=== PATIENT | female | born 1965 | race Caucasian/White ===

== ENCOUNTER 2022-07-27 17:00 | Emergency (ER) | payer OTHER, SELFPAY ==
[2022-07-27 17:07] VITALS: BP 143/69; PULSE 83; RESP 16; TEMP 36.6; O2SAT 96
--- NOTE | 2022-07-27 17:12 | XRR_ITS ---
PROCEDURE INFORMATION: Exam: XR Right Ankle Exam date and time: 07/27/2022 6:51 PM Age: 56 years old Clinical indication: Pain; Ankle and foot; Right; Additional info: Heavy object fell on ankle TECHNIQUE: Imaging protocol: Radiologic exam of the Right ankle. Views: 3 or more views. COMPARISON: CR (LOW EXM, ) 07/27/2022 6:18 PM FINDINGS: Bones/joints: Lateral malleolar soft tissue swelling. Punctate calcification at the tip of the fibula may reflect a small avulsion fracture. Os trigonum, normal variant. Small calcified heel spur. Fifth metatarsal base fracture incompletely visualized, please refer to same-day foot radiograph for further discussion. Soft tissues: See Bones/joints finding. XR/XR ankle RT min 3V* [id number] IMPRESSION: 1. Lateral malleolar soft tissue swelling. 2. Punctate calcification at the tip of the fibula may reflect a small avulsion fracture. 3. Os trigonum, normal variant. 4. Small calcified heel spur. 5. Fifth metatarsal base fracture incompletely visualized, please refer to same-day foot radiograph for further discussion.
--- NOTE | 2022-07-27 17:19 | W.ED.EXTPRO ---
HPI - Extremity Problem General: Chief complaint: Extremity Injury, Lower Stated complaint: Right leg injury Time Seen by Provider: 07/27/22 17:14 History of Present Illness: Patient is a 56-year-old female comes to the ED with right ankle injury. Patient says she was trying to get up bug zapper down and tractor seat fell onto her right ankle and foot She has 8 out of 10 pain in her right ankle with a lot of swelling. She was unable to weight-bear after injury. Associated symptoms: Deny chest pain, fever(s) or rash Review of Systems Const: Denies: fever(s), chills or fatigue Eyes: Denies: change in vision or eye discomfort ENMT: Denies: throat pain, odynophagia, nasal discharge or nasal congestion Card: Denies: chest pain, palpitations, edema, swelling of feet/ankles, dyspnea on exertion or orthopnea Resp: Denies: dyspnea, productive cough or non-productive cough GI: Denies: abdominal pain, nausea, vomiting, diarrhea, constipation or hematochezia : Denies: flank pain, dysuria or hematuria Musc: Reports: extremity pain (Right ankle) and extremity swelling (Right ankle); Denies: neck pain or back pain Skin/Breast: Denies: rash or new lesions Neuro: Denies: headache(s), numbness in extremities or weakness in extremities PFS ED PFSH: Medical History No pertinent family history Surgical History No pertinent past surgical history Physical Exam Const: COMMON NORMALS: patient oriented x3 and alert GENERAL APPEARANCE: cooperative HENMT: COMMON NORMALS: normocephalic HEAD & SCALP: normocephalic MOUTH: Normal oral and palatal mucosa present THROAT: posterior oropharynx normal and uvula midline Neck/C-Spine: COMMON NORMALS: supple GENERAL: Yes normal visual inspection Resp: COMMON NORMALS: normal respiratory effort, No retractions, No use of accessory muscles and clear to auscultation bilaterally AUSCULTATION: clear to auscultation bilaterally Cardio: COMMON NORMALS: regular rate, regular rhythm, S1 normal heart sound present, S2 normal heart sound present, No gallops present (Cardio), No clicks present (Cardio), No murmurs present (Cardio) and Peripheral pulses 2+ throughout RATE: regular rate RHYTHM: regular rhythm HEART SOUNDS: S1 normal heart sound present and S2 normal heart sound present PERIPHERAL PULSES: Peripheral pulses 2+ throughout GI: COMMON NORMALS: Normal to inspection, nondistended, normoactive bowel sounds present, Soft to palpation, non-tender and no masses PALPATION: Yes Soft to palpation : COMMON NORMALS: Yes no CVA tenderness BLADDER/KIDNEY EXAM: Yes no CVA tenderness Back/Pelvis: COMMON NORMALS: no CVA tenderness Extremity: COMMON NORMALS: normal to inspection NARRATIVE EXTREMITY EXAM: Right foot?ecchymosis and swelling around lateral midfoot region. Tenderness to palpation. Neurovascular intact RIGHT LOWER EXTREMITY: Yes foot & digits Right ankle: Yes inspection (Ecchymosis and swelling over lateral malleolus), Yes palpation (Tenderness over lateral malleolus), Yes ROM (Limited due to pain) and Yes neurovascular exam (Intact) Neuro: COMMON NORMALS: patient oriented x3 SENSORIUM/ORIENTATION: Yes alert GAIT: Yes Normal gait present Skin: GENERAL SKIN EXAM: dry skin Course Vital Signs: Vital signs: Vital Signs Temperature 97.8 F 07/27/22 17:07 Pulse Rate 83 07/27/22 17:07 Respiratory Rate 17 07/27/22 17:20 Blood Pressure 143/69 07/27/22 17:07 Pulse Oximetry 95 07/27/22 17:20 Oxygen Delivery Me thod 07/27/22 17:07 MDM - Extremity (Nontraumatic) Medical Decision Making Patient is a 56-year-old female comes to the ED with right ankle injury. Patient says she was trying to get up bug zapper down and tractor seat fell onto her right ankle and foot She has 8 out of 10 pain in her right ankle with a lot of swelling. She was unable to weight-bear after injury. Vitals are stable. Exam of patient shows significant ecchymosis and swelling over lateral malleolus. She has tenderness over lateral malleolus and lateral aspect midfoot. Neurovascular intact. Ankle x-ray shows avulsion fracture of distal fibula along with fifth metatarsal comminuted fracture involving the proximal base. Patient diagnosed with metatarsal fracture and avulsion fracture of distal fibula. I placed an order with case management for patient referred to podiatry/Ortho for follow-up and further management of foot and ankle fracture. Patient was put in a posterior leg with stirrup splint and she has crutches at home she will use for ambulation. She was discharged home with a prescription for hydrocodone for pain. Return to ED precautions given. Patient understood and agreed with plan. Lab Data Radiology Impressions Ankle X-Ray 07/27/22 17:12 IMPRESSION: 1. Lateral malleolar soft tissue swelling. 2. Punctate calcification at the tip of the fibula may reflect a small avulsion fracture. 3. Os trigonum, normal variant. 4. Small calcified heel spur. 5. Fifth metatarsal base fracture incompletely visualized, please refer to same-day foot radiograph for further discussion. Foot X-Ray 07/27/22 18:05 IMPRESSION: Fifth metatarsal comminuted fracture involving the proximal base extending to the mid diaphysis with mild displacement, with suggestion of some healing callus formation suggesting this may be subacute depending on the clinical scenario. Discharge Plan Discharge Patient Disposition: Home Clinical Impression: Avulsion fracture of distal end of fibula Metatarsal fracture Qualifiers: Encounter type: initial encounter Metatarsal bone: fifth Fracture type: closed Fracture alignment: nondisplaced Laterality: right Qualified Code(s): S92.354A - Nondisplaced fracture of fifth metatarsal bone, right foot, initial encounter for closed fracture Condition: Stable Prescriptions: New ibuprofen 800 mg tablet 800 mg PO Q8H PRN (Reason: pain) Qty: 30 0RF Discharge Orders: Discharge ED (Routine); Ordered 07/27/22 Ordered By: Temo Cooney Discharge Diet: Regular Discharge Activity: Limit activity as instructed and Use walker/crutches as instructed Patient Instructions: Fractures - Metatarsal, Opioid Safety Activity Restrictions/Additional Instructions: Follow-up with medical provider as directed. Case management should be contacting you in the next several days set up an appointment with Ortho/podiatry for follow-up and further management of metatarsal fracture and distal fibula avulsion fracture. Keep splint on and dry and limit weightbearing and use crutches to help with ambulation. Take medications as prescribed. Return to the ER or your medical provider if condition worsens. Please read and understand discharge instructions. Thank you for choosing [facility] for your healthcare needs today. Please realize this is an emergency room and that we are providing you with a medical screening exam and this may not be complete and all inclusive of all the testing and or work up that you may need to determine your ailment or severity of your illness. It is very important that you follow up as instructed or that you return to the Emergency Department should you have concerns or if your condition changes or worsens in any way. Coding Level of Care Code ED Certified Maintenance [employer]der for [employer] Exam Comprehensive
[2022-07-27 17:20] VITALS: RESP 17; O2SAT 95
[2022-07-27] MEDS: morphine 4 mg/mL SDV 1 mL IM (17:20)
--- NOTE | 2022-07-27 18:05 | XRR_ITS ---
PROCEDURE INFORMATION: Exam: XR Right Foot Exam date and time: 07/27/2022 6:18 PM Age: 56 years old Clinical indication: Injury or trauma; Other: Heavy object fell on foot; Blunt trauma; Right; Additional info: Heavy object fell on right foot TECHNIQUE: Imaging protocol: Radiologic exam of the Right foot. Views: 3 or more views. COMPARISON: No relevant prior studies available. FINDINGS: Bones/joints: Fifth metatarsal comminuted fracture involving the proximal base extending to the mid diaphysis with mild displacement, with suggestion of some healing callus formation suggesting this may be subacute depending on the clinical scenario. Soft tissues: Normal. XR/XR foot RT min 3V* [id number] IMPRESSION: Fifth metatarsal comminuted fracture involving the proximal base extending to the mid diaphysis with mild displacement, with suggestion of some healing callus formation suggesting this may be subacute depending on the clinical scenario.
[2022-07-27] MEDS: HYDROcodone-acetaminophen 7.5-325 mg Tablet 1 TAB PO (19:17)
--- NOTE | 2022-07-30 10:53 | DCPLANNER ---
Addendum entered by Cristal King 07/31/22 07:42: sales analytics manager received the following message from ortho regarding follow up appointment: called patient to schedule appointment, she informed me we do not take her insurance so she was going to her primary care in [place] and told me to disregard this! Original Note: sales analytics manager had message to schedule a follow up appointment for patient with ortho. sales analytics manager sent patients information to the front office staff at ortho. Patients information will be printed and reviewed. Clinic will call patient with appointment information.
== END 2022-07-27 20:24 | disposition home or self-care (01) ==
PROVIDERS: Emergency Provider Physician Assistant; PCP Family Medicine
DX: S82.831A Other fracture of upper and lower end of right fibula, initial encounter for closed fracture (principal); S92.351A Displaced fracture of fifth metatarsal bone, right foot, initial encounter for closed fracture; W20.8XXA Other cause of strike by thrown, projected or falling object, initial encounter
CPT/HCPCS: 29515; 73610; 73630; 96372; 99284; J2270

== ENCOUNTER 2023-01-11 07:27 | Emergency (ER) | payer OTHER, SELFPAY ==
[2023-01-11 07:39] VITALS: BP 155/80; PULSE 74; RESP 25; TEMP 36.8; O2SAT 100
[2023-01-11 07:49] VITALS: O2SAT 98
--- NOTE | 2023-01-11 07:53 | CT_ITS ---
WS: [id number] CT ABDOMEN AND PELVIS NONCONTRAST HISTORY: Right flank pain TECHNIQUE: Imaging performed through the abdomen and pelvis. Coronal and sagittal reformats are submi tted. All CT scans at [facility] use at least one of these dose optimization techniques: auto mated exposure control; mA and/or kV adjustment per patient size (includes targeted exams where dose is matched to clinical indication); or iterative reconstruction. DLP: 396.44 mGy.cm COMPARISON: None available. Lower thorax: Lung bases are clear. Visualized heart is normal. No hiatal hernia. Liver: Normal size liver. No mass or bile duct dilatation. Gallbladder: Normal gallbladder. Pancreas: Normal size and attenuation. Normal pancreatic duct. No pancreatitis or mass. Spleen: Normal. Adrenal glands: Normal. No mass. Right kidney: Mildly enlarged and edematous RIGHT kidney. Mild RIGHT hydroureteronephrosis. 2 mm calc ification in the distal RIGHT ureter. There is an additional 4 mm calcification which is probably in the urinary bladder. Left kidney: Normal size kidney with no mass or hydronephrosis. Aorta: Mild atherosclerosis abdominal aorta with no aneurysm. No free fluid, intraperitoneal air or significant lymphadenopathy. GI tract: Normal noncontrast imaging of the stomach, small bowel and colon. No obstruction or wall th ickening. Normal appendix. Abdominal wall: Negative. No hernia. Pelvis: Normal. Osseous structures: Unremarkable. CT/CT kidney stone [id number] IMPRESSION: 1. Mild RIGHT hydroureteronephrosis. 2 mm calcification in the distal RIGHT ur eter. Additional 4 mm calcification either at the UV junction or within the uri nary bladder. 2. Normal appendix.
--- NOTE | 2023-01-11 07:53 | ED_ITS ---
Documented by User: NANCY Quiroga 01/11/23 10:44 HPI - Abdominal Pain General: Chief Complaint: Abdominal Pain Stated Complaint: back pain/urinary pain Time Seen by Provider: 01/11/23 07:30 History of Present Illness: Patient is a 57-year-old female comes to the ED with abdominal pain. Symptoms started around 3:00 this morning. Patient says pain woke her up and it was located in the right lower side of abdomen. Pain then radiates around her right side and into her right lower back. She rates the pain a 10 out of 10. She was nauseous and had an episode of emesis earlier this morning. She took 2 Tylenol 500 mg tablets and that did not help with pain. She states she has been moving around a bunch and cannot get comfortable. Denies any history of kidney stones. Denies any fevers, dysuria, hematuria, constipation or diarrhea. Past surgical history of 2 C-sections and hysterectomy. Associated Symptoms: Denies chills, constipation, diarrhea, dysuria, fever(s), hematochezia, hematuria, nausea and vomiting Review of Systems Const: Denies: fever(s), chills or fatigue Eyes: Denies: change in vision or eye discomfort ENMT: Denies: throat pain, odynophagia, nasal discharge or nasal congestion Card: Denies: chest pain, palpitations, edema, swelling of feet/ankles, dyspnea on exertion or orthopnea Resp: Denies: dyspnea, productive cough or non-productive cough GI: Denies: abdominal pain, nausea, vomiting, diarrhea, constipation or hematochezia : Reports: flank pain (Right flank); Denies: dysuria or hematuria Musc: Denies: neck pain, back pain or extremity swelling Skin/Breast: Denies: rash or new lesions Neuro: Denies: headache(s), numbness in extremities or weakness in extremities PFS ED PFSH: Medical History No pertinent family history Surgical History No pertinent past surgical history Physical Exam Const: COMMON NORMALS: patient oriented x3 HENMT: COMMON NORMALS: normocephalic HEAD & SCALP: normocephalic MOUTH: Normal oral and palatal mucosa present THROAT: posterior oropharynx normal and uvula midline Neck/C-Spine: COMMON NORMALS: supple GENERAL: Yes normal visual inspection Resp: COMMON NORMALS: normal respiratory effort, No retractions, No use of accessory muscles and clear to auscultation bilaterally AUSCULTATION: clear to auscultation bilaterally Cardio: COMMON NORMALS: regular rate, regular rhythm, S1 normal heart sound present, S2 normal heart sound present, No gallops present (Cardio), No clicks present (Cardio), No murmurs present (Cardio) and Peripheral pulses 2+ throughout RATE: regular rate RHYTHM: regular rhythm HEART SOUNDS: S1 normal heart sound present and S2 normal heart sound present PERIPHERAL PULSES: Peripheral pulses 2+ throughout GI: COMMON NORMALS: Normal to inspection, nondistended, normoactive bowel sounds present, Soft to palpation, non-tender and no masses PALPATION: Yes Soft to palpation and Yes Tenderness to palpation present (GI) Details: RLQ : BLADDER/KIDNEY EXAM: Yes CVA tenderness on the right Back/Pelvis: GENERAL BACK: Yes CVA tenderness Extremity: COMMON NORMALS: normal to inspection Neuro: COMMON NORMALS: patient oriented x3 GAIT: Yes Normal gait present Skin: GENERAL SKIN EXAM: dry skin Course Vital Signs: Vital signs: Vital Signs Temperature 98.3 F 01/11/23 07:39 Pulse Rate 62 01/11/23 10:44 Respiratory Rate 25 H 01/11/23 07:39 Blood Pressure 138/58 01/11/23 10:44 Pulse Oximetry 97 01/11/23 10:44 Oxygen Delivery Me thod 01/11/23 07:49 MDM - Abdominal Pain Medical Decision Making Patient is a 57-year-old female comes in the ED with right flank pain. Vitals are stable. Patient has right CVA tenderness. Rest of exam is benign white blood cell count of 13.9 the rest of CBC and CMP are unremarkable. UA shows RBCs but no signs of UTI. CT abdomen pelvis shows right 2 mm kidney stone and distal right ureter and a 4 mm stone at the UV junction or in bladder. Patient's symptoms were well controlled with IV pain meds and nausea meds. She was stable for discharge home. I placed order with case management for patient be referred to urologist for follow-up. She was sent home with a prescription for tamsulosin, naproxen, Zofran and [place] for acute pain. Return to ED precautions given. Patient is to improve with plan. Lab Data I reviewed the patient's lab results. 01/11/23 07:51 01/11/23 07:51 Labs/Radiology: Radiology Impressions Abdomen/Pelvis CT 01/11/23 07:53 IMPRESSION: 1. Mild RIGHT hydroureteronephrosis. 2 mm calcification in the distal RIGHT ureter. Additional 4 mm calcification either at the UV junction or within the urinary bladder. 2. Normal appendix. Laboratory Results WBC 13.9 10^3/uL (4.0-10.0) H 01/11/23 07:51 RBC 4.76 10^6/uL (4.1-5.3) 01/11/23 07:51 Hgb 14.5 g/dL (11.5-15.3) 01/11/23 07:51 Hct 44.9 % (37.0-47.0) 01/11/23 07:51 MCV 94.3 fl (81-99) 01/11/23 07:51 MCH 30.5 pg (28.0-34.0) 01/11/23 07:51 MCHC 32.3 g/dL (30.0-36.0) 01/11/23 07:51 RDW 12.5 % (12.1-15.1) 01/11/23 07:51 Plt Count 350 10^3/cmm (130-400) 01/11/23 07:51 MPV 10.4 fL (7.4-10.4) 01/11/23 07:51 Neut % (Auto) 78.1 % 01/11/23 07:51 Lymph % (Auto) 15.8 % 01/11/23 07:51 [place] % (Auto) 4.0 % 01/11/23 07:51 Eos % (Auto) 1.1 % 01/11/23 07:51 Baso % (Auto) 0.6 % 01/11/23 07:51 Neut # (Auto) 10.86 10^3/uL (1.8-7.7) H 01/11/23 07:51 Lymph # (Auto) 2.2 10^3/uL (0.8-4.8) 01/11/23 07:51 Forrest # (Auto) 0.6 10^3/uL (0.2-0.9) 01/11/23 07:51 Eos # (Auto) 0.2 10^3/uL (0.0-0.8) 01/11/23 07:51 Baso # (Auto) 0.1 10^3/uL (0.0-0.1) 01/11/23 07:51 Nucleated RBC % (auto) 0 % 01/11/23 07:51 Nucleated RBCs # 0.0 /100WBC 01/11/23 07:51 Sodium 137 mmol/L (136-145) 01/11/23 07:51 Potassium 4.3 mmol/L (3.5-5.1) 01/11/23 07:51 Chloride 99 mmol/L (98-107) 01/11/23 07:51 Carbon Dioxide 20 mmol/L (22-29) L 01/11/23 07:51 Anion Gap 22.3 (5-19) H 01/11/23 07:51 BUN 20 mg/dL (6-20) 01/11/23 07:51 Creatinine 0.7 mg/dL (0.5-0.9) 01/11/23 07:51 GFR Calculation 85.9 mL/min (90-130) L 01/11/23 07:51 Glucose 167 mg/dL (65-115) H 01/11/23 07:51 Calculated Osmolality 290 mOsm/kg (285-295) 01/11/23 07:51 Calcium 9.5 mg/dL (8.5-10.5) 01/11/23 07:51 Total Bilirubin 0.3 mg/dL (0.15-1.2) 01/11/23 07:51 AST 16 U/L (0-32) 01/11/23 07:51 ALT 17 U/L (0-33) 01/11/23 07:51 Alkaline Phosphatase 87 U/L (35-105) 01/11/23 07:51 Total Protein 7.6 g/dL (6.6-8.7) 01/11/23 07:51 Albumin 4.8 g/dL (3.5-5.2) 01/11/23 07:51 Globulin 2.8 g/dL (1.3-4.6) 01/11/23 07:51 Lipase 26 U/L (13-60) 01/11/23 07:51 Urine Color [place] (Yellow) 01/11/23 10:09 Urine Appearance Clear (CLEAR) 01/11/23 10:09 Urine pH 6 (5-7) 01/11/23 10:09 Ur Specific [place] 1.015 (1.005-1.030) 01/11/23 10:09 Urine Protein 1+ (Negative) H 01/11/23 10:09 Urine Glucose (UA) Norm (Normal) 01/11/23 10:09 Urine Ketones 1+ (Negative) H 01/11/23 10:09 Urine Blood 3+ (Negative) H 01/11/23 10:09 Urine Nitrate TNP 01/11/23 10:09 Urine Bilirubin 1+ (Negative) H 01/11/23 10:09 Urine Urobilinogen 1 mg/dL (Negative) H 01/11/23 10:09 Ur Leukocyte Esterase Negative (Negative) 01/11/23 10:09 Urine RBC 10-15 /hpf (0-2) H 01/11/23 10:09 Urine WBC 0-4 /hpf (0-5) H 01/11/23 10:09 Ur Squamous Epith Cells 0-4 /hpf (0-5) H 01/11/23 10:09 Amorphous Sediment Not Reportable 01/11/23 10:09 Urine Bacteria Trace /hpf (NONE) 01/11/23 10:09 Urine Mucus Trace /hpf 01/11/23 10:09 Discharge Plan Discharge Patient Disposition: Home Clinical Impression: Kidney stone on right side Condition: Stable Prescriptions: New Naprosyn 500 mg tablet 500 mg PO BID PRN (Reason: pain) Qty: 20 0RF ondansetron 4 mg tablet,disintegrating 4 mg PO Q8H PRN (Reason: nausea and vomiting) Qty: 15 0RF tamsulosin 0.4 mg capsule 0.4 mg PO DAILY Qty: 10 0RF No Action ibuprofen 800 mg tablet 800 mg PO Q8H PRN (Reason: pain) Qty: 30 0RF Discharge Orders: Discharge ED (Routine); Ordered 01/11/23 Ordered By: Temo Cooney Referrals: Dereck Farrell [Primary Care Provider] - Discharge Diet: Regular Discharge Activity: Increase activity as tolerated Patient Instructions: Kidney Stones (ED), Opioid Safety Activity Restrictions/Additional Instructions: Follow-up with medical provider as directed. Case management should be contacting you in the next several days to set up an appointment with urologist. Strain urine to catch stone and drink lots of fluid to stay hydrated and help pass stone. Take medications as prescribed. You can take ibuprofen or Aleve for any pain or fevers. Return to the ER or your medical provider if condition worsens. Please read and understand discharge instructions. If any questions, please ask. Coding Level of Care Code ED Stock Transfer Clerk for Chg Fwd Documented by User: Ezekiel Harrison DO 01/11/23 11:38 HPI - Abdominal Pain General: Chief Complaint: Abdominal Pain Stated Complaint: back pain/urinary pain Time Seen by Provider: 01/11/23 07:30 PFSH ED PFSH: Medical History No pertinent family history Surgical History No pertinent past surgical history Course Vital Signs: Vital signs: Vital Signs Temperature 98.3 F 01/11/23 07:39 Pulse Rate 62 01/11/23 10:44 Respiratory Rate 25 H 01/11/23 07:39 Blood Pressure 138/58 01/11/23 10:44 Pulse Oximetry 97 01/11/23 10:44 Oxygen Delivery Me thod 01/11/23 07:49 MDM - Abdominal Pain Medical Decision Making Patient is a 57-year-old female comes in the ED with right flank pain. Vitals are stable. Patient has right CVA tenderness. Rest of exam is benign white blood cell count of 13.9 the rest of CBC and CMP are unremarkable. UA shows RBCs but no signs of UTI. CT abdomen pelvis shows right 2 mm kidney stone and distal right ureter and a 4 mm stone at the UV junction or in bladder. Patient's symptoms were well controlled with IV pain meds and nausea meds. She was stable for discharge home. I placed order with case management for patient be referred to urologist for follow-up. She was sent home with a prescription for tamsulosin, naproxen, Zofran and [place] for acute pain. Return to ED precautions given. Patient is to improve with plan. Chart reviewed and patient discussed with midlevel. Agree with assessment and plan. Medical Records I reviewed the patient's medical records. Lab Data 01/11/23 07:51 01/11/23 07:51 Labs/Radiology: Radiology Impressions Abdomen/Pelvis CT 01/11/23 07:53 IMPRESSION: 1. Mild RIGHT hydroureteronephrosis. 2 mm calcification in the distal RIGHT ureter. Additional 4 mm calcification either at the UV junction or within the urinary bladder. 2. Normal appendix. Laboratory Results WBC 13.9 10^3/uL (4.0-10.0) H 01/11/23 07:51 RBC 4.76 10^6/uL (4.1-5.3) 01/11/23 07:51 Hgb 14.5 g/dL (11.5-15.3) 01/11/23 07:51 Hct 44.9 % (37.0-47.0) 01/11/23 07:51 MCV 94.3 fl (81-99) 01/11/23 07:51 MCH 30.5 pg (28.0-34.0) 01/11/23 07:51 MCHC 32.3 g/dL (30.0-36.0) 01/11/23 07:51 RDW 12.5 % (12.1-15.1) 01/11/23 07:51 Plt Count 350 10^3/cmm (130-400) 01/11/23 07:51 MPV 10.4 fL (7.4-10.4) 01/11/23 07:51 Neut % (Auto) 78.1 % 01/11/23 07:51 Lymph % (Auto) 15.8 % 01/11/23 07:51 [place] % (Auto) 4.0 % 01/11/23 07:51 Eos % (Auto) 1.1 % 01/11/23 07:51 Baso % (Auto) 0.6 % 01/11/23 07:51 Neut # (Auto) 10.86 10^3/uL (1.8-7.7) H 01/11/23 07:51 Lymph # (Auto) 2.2 10^3/uL (0.8-4.8) 01/11/23 07:51 [place] # (Auto) 0.6 10^3/uL (0.2-0.9) 01/11/23 07:51 Eos # (Auto) 0.2 10^3/uL (0.0-0.8) 01/11/23 07:51 Baso # (Auto) 0.1 10^3/uL (0.0-0.1) 01/11/23 07:51 Nucleated RBC % (auto) 0 % 01/11/23 07:51 Nucleated RBCs # 0.0 /100WBC 01/11/23 07:51 Sodium 137 mmol/L (136-145) 01/11/23 07:51 Potassium 4.3 mmol/L (3.5-5.1) 01/11/23 07:51 Chloride 99 mmol/L (98-107) 01/11/23 07:51 Carbon Dioxide 20 mmol/L (22-29) L 01/11/23 07:51 Anion Gap 22.3 (5-19) H 01/11/23 07:51 BUN 20 mg/dL (6-20) 01/11/23 07:51 Creatinine 0.7 mg/dL (0.5-0.9) 01/11/23 07:51 GFR Calculation 85.9 mL/min (90-130) L 01/11/23 07:51 Glucose 167 mg/dL (65-115) H 01/11/23 07:51 Calculated Osmolality 290 mOsm/kg (285-295) 01/11/23 07:51 Calcium 9.5 mg/dL (8.5-10.5) 01/11/23 07:51 Total Bilirubin 0.3 mg/dL (0.15-1.2) 01/11/23 07:51 AST 16 U/L (0-32) 01/11/23 07:51 ALT 17 U/L (0-33) 01/11/23 07:51 Alkaline Phosphatase 87 U/L (35-105) 01/11/23 07:51 Total Protein 7.6 g/dL (6.6-8.7) 01/11/23 07:51 Albumin 4.8 g/dL (3.5-5.2) 01/11/23 07:51 Globulin 2.8 g/dL (1.3-4.6) 01/11/23 07:51 Lipase 26 U/L (13-60) 01/11/23 07:51 Urine Color [place] (Yellow) 01/11/23 10:09 Urine Appearance Clear (CLEAR) 01/11/23 10:09 Urine pH 6 (5-7) 01/11/23 10:09 Ur Specific [place] 1.015 (1.005-1.030) 01/11/23 10:09 Urine Protein 1+ (Negative) H 01/11/23 10:09 Urine Glucose (UA) Norm (Normal) 01/11/23 10:09 Urine Ketones 1+ (Negative) H 01/11/23 10:09 Urine Blood 3+ (Negative) H 01/11/23 10:09 Urine Nitrate TNP 01/11/23 10:09 Urine Bilirubin 1+ (Negative) H 01/11/23 10:09 Urine Urobilinogen 1 mg/dL (Negative) H 01/11/23 10:09 Ur Leukocyte Esterase Negative (Negative) 01/11/23 10:09 Urine RBC 10-15 /hpf (0-2) H 01/11/23 10:09 Urine WBC 0-4 /hpf (0-5) H 01/11/23 10:09 Ur Squamous Epith Cells 0-4 /hpf (0-5) H 01/11/23 10:09 Amorphous Sediment Not Reportable 01/11/23 10:09 Urine Bacteria Trace /hpf (NONE) 01/11/23 10:09 Urine Mucus Trace /hpf 01/11/23 10:09 Discharge Plan Discharge Patient Disposition: Home Clinical Impression: Kidney stone on right side Condition: Stable Prescriptions: New Naprosyn 500 mg tablet 500 mg PO BID PRN (Reason: pain) Qty: 20 0RF ondansetron 4 mg tablet,disintegrating 4 mg PO Q8H PRN (Reason: nausea and vomiting) Qty: 15 0RF tamsulosin 0.4 mg capsule 0.4 mg PO DAILY Qty: 10 0RF No Action ibuprofen 800 mg tablet 800 mg PO Q8H PRN (Reason: pain) Qty: 30 0RF Discharge Orders: Discharge ED (Routine); Ordered 01/11/23 Ordered By: Temo Cooney Referrals: Dereck Farrell [Primary Care Provider] - Discharge Diet: Regular Discharge Activity: Increase activity as tolerated Patient Instructions: Kidney Stones (ED), Opioid Safety Activity Restrictions/Additional Instructions: Follow-up with medical provider as directed. Case management should be contacting you in the next several days to set up an appointment with urologist. Strain urine to catch stone and drink lots of fluid to stay hydrated and help p ass stone. Take medications as prescribed. You can take ibuprofen or Aleve for any pain or fevers. Return to the ER or your medical provider if condition worsens. Please read and understand discharge instructions. If any questions, please ask. Coding Level of Care Code ED Stock Transfer Clerk for Anthony Whalen
[2023-01-11 07:57] LABS: Basophils # 0.1 10^3/uL (0.0-0.1); Basophils % 0.6 %; Eosinophils # 0.2 10^3/uL (0.0-0.8); Eosinophils % 1.1 %; Hematocrit 44.9 % (37.0-47.0); Hemoglobin 14.5 g/dL (11.5-15.3); Lymphocytes # 2.2 10^3/uL (0.8-4.8); Lymphocytes % 15.8 %; Mean Corpuscular HGB Conc 32.3 g/dL (30.0-36.0); Mean Corpuscular Hemoglobin 30.5 pg (28.0-34.0); Mean Corpuscular Volume 94.3 fl (81-99); Mean Platelet Volume 10.4 fL (7.4-10.4); Monocytes # 0.6 10^3/uL (0.2-0.9); Neutrophils # 10.86 10^3/uL (1.8-7.7); Neutrophils % 78.1 %; Nucleated Red Blood Cells % 0 %; Platelet Count 350 10^3/cmm (130-400); Red Blood Count 4.76 10^6/uL (4.1-5.3); Red Cell Distribution Width 12.5 % (12.1-15.1); White Blood Count 13.9 10^3/uL (4.0-10.0)
[2023-01-11] MEDS: morphine 4 mg/mL SDV 1 mL IVP (07:58)
[2023-01-11] MEDS: ondansetron 2 mg/ML SDV 2 mL 4 MG IVP (07:58)
[2023-01-11] MEDS: sodium chloride 0.9% 500 ML 999 ML IV (07:59)
[2023-01-11 08:17] LABS: Alanine Aminotransferase 17 U/L (0-33); Albumin Level 4.8 g/dL (3.5-5.2); Alkaline Phosphatase 87 U/L (35-105); Anion Gap 22.3 (5-19); Aspartate Amino Transferase 16 U/L (0-32); Blood Urea Nitrogen 20 mg/dL (6-20); Calcium 9.5 mg/dL (8.5-10.5); Carbon Dioxide 20 mmol/L (22-29); Chloride 99 mmol/L (98-107); Globulin 2.8 g/dL (1.3-4.6); Glomerular Filtration Rate 85.9 mL/min (90-130); Glucose 167 mg/dL (65-115); Lipase 26 U/L (13-60); Osmolality Calculated 290 mOsm/kg (285-295); Potassium 4.3 mmol/L (3.5-5.1); Sodium 137 mmol/L (136-145); Total Bilirubin 0.3 mg/dL (0.15-1.2); Total Protein 7.6 g/dL (6.6-8.7)
[2023-01-11] MEDS: HYDROmorphone 1 mg/mL INJ 1 mL IVP (08:40)
[2023-01-11] MEDS: ketorolac 30 mg/mL INJ IVP (09:56)
[2023-01-11 10:27] LABS: Add Urine Microscopic? YES; Bilirubin Urine 1+ (Negative); Blood Urine 3+ (Negative); Glucose Urine UA Norm (Normal); Ketones Urine 1+ (Negative); Leukocyte Esterase Urine Negative (Negative); Protein Urine 1+ (Negative); Specific Gravity, Urine 1.015 (1.005-1.030); Urine Appearance Clear (CLEAR); Urine Color Orange (Yellow); Urobilinogen Urine 1 mg/dL (Negative); pH Urine 6 (5-7)
[2023-01-11 10:32] LABS: Add Urine Culture? Yes; Bacteria Urine TRACE /hpf; Mucus Urine TRACE /hpf; Squamous Epithelial Cell Urine 0-4 /hpf (0-5); WBC Urine 0-4 /hpf (0-5)
[2023-01-11 10:44] VITALS: BP 138/58; PULSE 62; O2SAT 97
--- NOTE | 2023-01-11 10:52 | DCPLANNER ---
Addendum entered by Cristal King 01/16/23 09:02: Patient had a follow up appointment scheduled with urology - patient did not attend appointment Addendum entered by Cristal King 01/15/23 09:46: Patient has a follow up appointment scheduled for Sunday, January 15, 2023 at 10:[address] Arce at urology. Original Note: painting manager had message to schedule a follow up appointment for patient with urology. painting manager sent patients information to the front office staff at urology. Patients information will be printed and reviewed. Clinic will call patient with appointment information.
== END 2023-01-11 10:47 | disposition home or self-care (01) ==
PROVIDERS: Emergency Provider Physician Assistant; PCP Family Medicine
DX: N13.2 Hydronephrosis with renal and ureteral calculous obstruction (principal)
CPT/HCPCS: 74176; 80053; 81001; 83690; 85025; 87086; 96361; 96374; 96375; 99285; J1170; J1885; J2270; J2405; J7040

== ENCOUNTER 2023-10-09 10:07 | Outpatient (CLI) | payer OTHER, SELFPAY ==
--- NOTE | 2023-10-09 10:10 | MM_ITS ---
WS: [id number] Bilateral screening 3D tomosynthesis digital mammogram, 10/09/2023 Clinical Data: SCREENING Comparison: None. Findings: The breast parenchymal pattern shows heterogeneous density. No spiculated masses or clustered calcifi cations are seen. There are no secondary signs of carcinoma. Impression: 1. Negative bilateral mammogram with no prior mammogram for review. 2. Recommend annual screening mammograms. MM/[place] [id number] BIRADS: 1-Negative FOLLOW UP: 1 Year Follow-up The CAD land checker was used.
== END 2023-10-09 10:08 | disposition home or self-care (01) ==
LOC: RAD 10:07
PROVIDERS: PCP Family Medicine; Visit Provider Family Medicine
DX: Z12.31 Encounter for screening mammogram for malignant neoplasm of breast (principal)
CPT/HCPCS: 77063; 77067

== ENCOUNTER 2023-10-30 07:53 | Outpatient (CLI) | payer OTHER, SELFPAY ==
--- NOTE | 2023-10-30 07:58 | MR_ITS ---
WS: [id number] MRI CERVICAL SPINE NONCONTRAST HISTORY: CERVICAL RADICULOPATHY COMPARISON: None available. Technique: Multiplanar, multisequence noncontrast imaging of the cervical spine. Normal cervical alignment with no compression fracture or significant disc space narrowing. Signal within the cervical cord is normal. Visualized posterior fossa is unremarkable. Craniocervical junction, C1 and C2 relationship, odontoid process and soft tissues are normal. C2-C3: Normal. C3-C4: Small LEFT foraminal osteophytes with mild LEFT foraminal stenosis. C4-C5: Mild annular disc bulging and minimal osteophytosis. Very mild bilateral foraminal stenosis. C5-C6: Annular disc bulging and osteophytic ridging. Bilateral facet joint arthritis. Small central d isc protrusion. Mild central and bilateral foraminal stenosis. C6-C7: Annular disc bulging with a moderate central disc protrusion. Bilateral foraminal disc osteoph yte complexes and facet arthritis. Near complete effacement of ventral CSF. Mild to moderate central and bilateral foraminal stenosis. C7-T1: No stenosis. Paraspinal soft tissue are normal. IMPRESSION: 1. No high-grade central or foraminal stenosis. 2. C6-7: Mild to moderate central and bilateral foraminal stenosis due to osteophytes and disc and f acet disease. Moderate central disc protrusion. 3. C5-6: Mild central and bilateral foraminal stenosis. Small central disc protrusion. 4. C3-4: Mild LEFT foraminal stenosis due to osteophytes. 5. C4-5: Mild bilateral foraminal stenosis.
== END 2023-10-30 07:54 | disposition home or self-care (01) ==
LOC: RAD 07:54
PROVIDERS: PCP Family Medicine; Visit Provider Family Medicine
DX: M47.22 Other spondylosis with radiculopathy, cervical region (principal); M48.02 Spinal stenosis, cervical region; M25.78 Osteophyte, vertebrae; M50.122 Cervical disc disorder at C5-C6 level with radiculopathy
CPT/HCPCS: 72141

== ENCOUNTER 2023-11-26 06:57 | Outpatient (RCR) | payer OTHER, SELFPAY | END 2023-12-05 23:59 | disposition home or self-care (01) | LOC: SPT 06:57 | PROVIDERS: PCP Family Medicine; Visit Provider Family Medicine | DX: M54.12 Radiculopathy, cervical region (principal) | CPT/HCPCS: 97012; 97110; 97162; G0283 ==

== ENCOUNTER 2023-12-06 06:00 | Outpatient (RCR) | payer OTHER, SELFPAY | END 2023-12-20 23:59 | disposition home or self-care (01) | LOC: SPT 06:00 | PROVIDERS: PCP Family Medicine; Visit Provider Family Medicine | DX: M54.12 Radiculopathy, cervical region (principal) | CPT/HCPCS: 97012; 97110; G0283 ==

== ENCOUNTER 2025-09-20 13:37 | Outpatient (CLI) | payer OTHER, SELFPAY ==
--- NOTE | 2025-09-20 13:48 | MM_ITS ---
WS: [id number] BILATERAL 3D TOMOSYNTHESIS DIGITAL SCREENING MAMMOGRAPHY WITH CAD CLINICAL INFORMATION: SCREENING HISTORY: Screening mammogram. No current complaints. COMPARISON: 2023 TECHNIQUE: Bilateral CC and MLO views. FINDINGS: The breasts are composed of heterogeneous fibroglandular density tissue, which can limit the detection of small underlying mass lesions. No suspicious mass, asymmetry, calcifications, or architectural distortion. No evidence of malignancy. Punctate and lucent centered calcifications. MM/MM [facility] tomosynthesis [id number] IMPRESSION: DENSITY: The breasts are heterogeneously dense, which may obscure small masses. BI-RADS: 2 - Benign FOLLOW UP: 1 Year Follow-up Recommend return to annual screening mammography.
== END 2025-09-20 13:38 | disposition home or self-care (01) ==
LOC: RAD 13:44
PROVIDERS: Visit Provider Family Medicine
DX: Z12.31 Encounter for screening mammogram for malignant neoplasm of breast (principal); R92.333 Mammographic heterogeneous density, bilateral breasts; R92.323 Mammographic fibroglandular density, bilateral breasts; R92.1 Mammographic calcification found on diagnostic imaging of breast
CPT/HCPCS: 77063; 77067